=== PATIENT | female | born 1970 | race Hispanic/Latino ===

== ENCOUNTER 2017-06-19 17:47 | Emergency (ER) | payer BC ==
[2017-06-19 18:18] LABS: Bilirubin Small (Negative); Blood, Urine Moderate (Negative); Glucose, Urine (Dipstick) Negative (Negative); Ketone, Urine Negative (Negative); Nitrite Negative (Negative); Protein, Urine (Dipstick) Negative (Neg-Trace); Urobilinogen 0.2 mg/dL (0.2-1.0)
[2017-06-19 18:23] LABS: Squamous Epithelial 0-3 HPF (0-3); WBC/HPF 0-3 HPF (0-3)
[2017-06-19 18:24] LABS: Bacteria/HPF 1+ HPF (None Seen); Hyaline Casts/LPF 0-3 HYALINE CAST LPF (0-3 Hyaline)
[2017-06-19] MEDS ORDERED: Ondansetron HCl/PF 4 MG/2 ML Vial ONE (18:33)
[2017-06-19 18:51] LABS: #Basophils 0.1 thou/uL (0.0-0.2); #Eosinphils 0.2 thou/uL (0.0-0.7); #Lymphocytes 2.4 thou/uL (1.20-3.40); #Monocytes 0.7 thou/uL (0.11-0.59); #Neutrophils 6.4 thou/uL (1.40-6.50); %Basophils 1.5 % (0.0-1.0); %Eosinophils 2.3 % (0.0-10.0); %Lymphocytes 24.2 % (21.0-51.0); %Monocytes 6.7 % (0.0-10.0); Mean Platelet Volume 8.2 fL (7.4-10.4); Red Blood Cell (RBC) Count 4.07 mill/uL (4.20-5.40); White Blood Cell (WBC) Count 9.8 thou/uL (4.8-10.8)
[2017-06-19 19:04] LABS: ALT (SGPT) 20 U/L (8-55); AST (SGOT) 24 U/L (5-34); Alkaline Phosphatase 84 U/L (40-150); Anion Gap 13 mmol/L (10-20); BUN (Urea Nitrogen) 10 mg/dL (7.0-18.7); Bilirubin, Total 0.5 mg/dL (0.2-1.2); Calc. Creatinine Clearance 0 mL/min (70-130); Carbon Dioxide 24 mmol/L (22-29); Chloride 104 mmol/L (98-107); Estimated GFR-MDRD 89; Globulin 3.2 g/dL (2.4-3.5); Lipase 26 U/L (8-78); Protein, Total 7.1 g/dL (6.0-8.3)
[2017-06-19] MEDS ORDERED: HYDROcodone/Acetaminophen 10/325 mg Tablet ONE (21:46)
--- NOTE | 2017-06-19 21:47 | ULT ---
PELVIC ULTRASOUND 06/19/17 HISTORY: Irregular menstrual cycle. Patient has spotting and then develops bleeding and blood clots. Patient has been bleeding for two weeks and is experiencing dizziness. FINDINGS: Multiple transabdominal and endovaginal sonographic images of the pelvis are obtained. The uterus is enlarged measuring 13.2 cm x 4.8 cm x 6 cm. Endometrial stripe measures 6.9 cm which i s within normal limits in a normal menstruating female patient but would be abnormal in a postmenop ausal female patient. There is a small hypoechoic structure in the lower uterine segment measuring 1 .8 cm which may represent a small uterine fibroid. There is a large complex cystic and solid mass in the region of the cervix. This complex cystic mass measures 6.6 cm x 4.8 cm x 5.3 cm. The left ovary is not visualized. The right ovary measures 3.2 cm x 2.3 cm x 3.6 cm. There is a 2.5 cm anechoic structure seen in the right ovary likely related to small right ovarian cyst. Doppler evaluation with spectral analysis an d color flow evaluation of the right ovary does demonstrate what appears to be arterial flow as well as venous flow. No free fluid is seen in the cul-de-sac. IMPRESSION: 1. Large complex cystic mass in the cervix with greatest measurement of 6.6 cm. Neoplastic proc ess is the diagnosis of exclusion. [employer] consultation is recommended. 2. Small mass lower uterine segment which may represent a small uterine fibroid. 3. Nonvisualization of left ovary. 4. Small right ovarian cyst. POS: [facility]
== END 2017-06-19 22:11 | disposition home or self-care (01) ==
LOC: SCSER 17:47
DX: N76.0 Acute vaginitis (principal); N85.8 Other specified noninflammatory disorders of uterus; E03.9 Hypothyroidism, unspecified; D50.0 Iron deficiency anemia secondary to blood loss (chronic); Z79.899 Other long term (current) drug therapy
CPT/HCPCS: 36415; 51701; 76856; 80053; 81003; 81015; 83690; 84703; 85025; 87480; 87491; 87510; 87591; 87660; 93976; 96374; 96375; A4353; J2270; J2405

== ENCOUNTER 2020-04-13 15:11 | Outpatient (CLI) | payer BC ==
--- NOTE | 2020-04-13 16:38 | MRI ---
MRI CERVICAL SPINE WITHOUT CONTRAST: 04/13/20 HISTORY: Cervical radiculitis. Neck pain radiating to the left shoulder and down the left arm. FINDINGS: The vertebral body heights are maintained. There is minimal anterolisthesis of C4 over C5 vertebral b rachell. There are disc osteophyte complexes, and hypertrophic changes at uncovertebral joints, most prom inent at C4-5 and C5-6 levels. There is effacement of the anterior thecal sac with abutment of the an terior spinal cord at these levels. There is moderate left sided neural foraminal stenosis and mild l eft sided neural foraminal stenosis at these levels as well. No evidence of cord edema, syringomyelia or myelomalacia is seen. The paraspinal musculature is amber l. IMPRESSION: Cervical spondylosis with left sided neural foraminal stenosis at C4-5 (moderate) and C5-6 (mild) lev els. POS: [facility]
== END 2020-04-13 15:12 | disposition home or self-care (01) ==
LOC: BICMRI 15:11
PROVIDERS: ATTEND Family Medicine
DX: M47.22 Other spondylosis with radiculopathy, cervical region (principal); M48.02 Spinal stenosis, cervical region
CPT/HCPCS: 72141

== ENCOUNTER 2020-12-22 14:00 | Outpatient (CLI) | payer BC | END 2020-12-22 14:01 | disposition home or self-care (01) | LOC: BICRAD 14:00 | PROVIDERS: ATTEND Family Medicine | DX: M54.6 Pain in thoracic spine (principal); R10.9 Unspecified abdominal pain; M47.814 Spondylosis without myelopathy or radiculopathy, thoracic region | CPT/HCPCS: 72072 ==